=== PATIENT | female | born 1945 | race Caucasian/White ===

== ENCOUNTER 2019-02-04 04:00 | Inpatient (IN) | payer MEDICARE ==
[~2019-02-04] VITALS: Ht 170.2 cm; Wt 108.8 kg
[2019-02-04] MEDS ORDERED: ONDANSETRON 2MG/ML, 2ML ONE (04:15)
--- NOTE | 2019-02-04 04:25 | NUR ---
PT FOUND WITH SOB, N/V. PT FROM [place], PAIN AND SWELLING IN LEFT LOWER EXTREMITY. EMS FOUND HYPOXIC WITH O2 SATS IN 70S ON ROOM AIR
--- NOTE | 2019-02-04 04:29 | NUR ---
LAB AT BEDSIDE TO TAKE FIRST SET OF BLOOD CULTURES
[2019-02-04] MEDS ORDERED: VANCOMYCIN PER PHARMACY IV ONE (04:30)
[2019-02-04] MEDS ORDERED: SODIUM CHLORIDE 0.9% 1,000ML IVBOLUS ONE ×3 (04:30→07:00)
[2019-02-04] MEDS ORDERED: PIPERACILLIN/TAZO/PMX 3.375GM 50 ML IVPB ONE (04:30)
[2019-02-04] MEDS ORDERED: ONDANSETRON 2MG/ML, 2ML IVPush ONE (04:30)
--- NOTE | 2019-02-04 04:30 | NUR ---
ATTEMPTING TO GET SECOND IV WITH ULTRASOUND, WITH DIFFICULTY
[2019-02-04] MEDS: PLEASE ENTER ALLERGIES MC SCH ×3 (04:36→06:35)
[2019-02-04] MEDS ORDERED: ACETAMINOPHEN 650 MG SUPP PR ONE (04:40)
[2019-02-04] MEDS ORDERED: ACETAMINOPHEN 650 MG SUPP ONE (04:41)
[2019-02-04] MEDS ORDERED: ACETAMINOPHEN 325 MG SUPP ONE (04:41)
[2019-02-04] MEDS ORDERED: METF10007 PO (04:59)
[2019-02-04] MEDS ORDERED: HYDR-3342 PO (04:59)
[2019-02-04] MEDS ORDERED: LEVO25TA4 PO (04:59)
[2019-02-04] MEDS ORDERED: TIZA4CAP PO (04:59)
[2019-02-04] MEDS ORDERED: OLME20TA17 PO (04:59)
[2019-02-04] MEDS ORDERED: TRIM100T PO (04:59)
[2019-02-04] MEDS ORDERED: CARV12.52 PO (04:59)
[2019-02-04] MEDS ORDERED: CLON0.2T PO (04:59)
[2019-02-04] MEDS ORDERED: ROSU5TAB PO (04:59)
[2019-02-04] MEDS ORDERED: PREG100C PO (04:59)
[2019-02-04] MEDS ORDERED: INSU100V8 SQ (04:59)
[2019-02-04] MEDS ORDERED: IRON15TA3 PO (04:59)
[2019-02-04] MEDS ORDERED: ACETAMINOPHEN 500 MG TABLET PO ONE (05:00)
[2019-02-04] MEDS ORDERED: VANCOMYCIN 2,000 MG in SODIUM CHLORIDE 0.9% 500 ML IV ONE (05:00)
[2019-02-04 05:07] LABS: BASOPHILS # (AUTO) 0.02 x10^3/uL (0-0.1); BASOPHILS % (AUTO) 0 % (0-1); EOSINOPHILS # (AUTO) 0.15 x10^3/uL (0-0.4); EOSINOPHILS % (AUTO) 3 % (1-7); LYMPHOCYTES # (AUTO) 1.12 x10^3/uL (1-3.4); LYMPHOCYTES % (AUTO) 23 % (22-44); MD NO; MEAN CORPUSCULAR HEMOGLOBIN 25.6 pg (27.0-34.8); MEAN CORPUSCULAR HGB CONC 31.4 g/dL (32.4-35.8); MEAN CORPUSCULAR VOLUME 81.4 fL (80-100); MEAN PLATELET VOLUME 7.8 fL (7.4-10.4); MONOCYTES # (AUTO) 0.17 x10^3/uL (0.2-0.8); MONOCYTES % (AUTO) 3 % (2-9); NEUTROPHILS # (AUTO) 3.44 x10^3/uL (1.8-6.8); NEUTROPHILS % (AUTO) 70 % (42-75); PLATELET COUNT 322 x10^3/uL (130-400); RED BLOOD COUNT 5.04 x10^6/uL (3.82-5.3); RED CELL DISTRIBUTION WIDTH 21.5 % (9.6-15.2)
[2019-02-04] MEDS ORDERED: PIPERACILLIN/TAZO/PMX 3.375GM 50 ML ONE (05:13)
[2019-02-04 05:20] LABS: ALBUMIN 3.7 g/dL (3.4-5.0); ANION GAP 9 mmol/L (5-15); CALCIUM 9.1 mg/dL (8.5-10.1); CHLORIDE 104 mmol/L (98-107)
--- NOTE | 2019-02-04 05:24 | NUR ---
care transfered to angel luis vasques Addendum: 02/04/19 at 0535 by SAV NOA
[2019-02-04 05:25] LABS: ALANINE AMINOTRANSFERASE 21 U/L (12-78); ALKALINE PHOSPHATASE 104 U/L (45-117); BILIRUBIN,TOTAL 1.1 mg/dL (0.2-1.0); CREATININE 1.59 mg/dL (0.55-1.02); TOTAL PROTEIN 7.2 g/dL (6.4-8.2); TROPONIN I 0.114 ng/mL (0.000-0.045)
[2019-02-04 06:15] LABS: MICROSCOPIC INDICATED
[2019-02-04 06:22] LABS: CULTURE INDICATED? YES
--- NOTE | 2019-02-04 06:54 | NUR ---
[id number] sullivan given 3 liters of NS was infused per sepsis protocols vss family at bed side given report to devan hein
[2019-02-04] MEDS ORDERED: NOREPINEPHRINE 4 MG in SODIUM CHLORIDE 0.9% 246 ML IV PRN ×2 (07:00→09:00)
[2019-02-04] MEDS ORDERED: SODIUM CHLORIDE 0.9% 1,000 ML IV SCH (07:02)
[2019-02-04] MEDS ORDERED: PROPOFOL 100 ML IV PRN (07:25)
[2019-02-04] MEDS ORDERED: FUROSEMIDE 20 MG/2 ML ONE (07:28)
[2019-02-04] MEDS ORDERED: VANCOMYCIN PER PHARMACY MC PRN (07:30)
[2019-02-04] MEDS ORDERED: LABETALOL 5MG/ML, 20ML IVPush PRN (07:30)
[2019-02-04] MEDS ORDERED: POLYETHYLENE GLYCOL 17 GM PACKET PO PRN (07:30)
[2019-02-04] MEDS ORDERED: SUCCINYLCHOLINE 20 MG/ML, 10ML IVPush ONE (07:30)
[2019-02-04] MEDS ORDERED: OXYcodone IR 5MG TABLET PO PRN (07:30)
[2019-02-04] MEDS ORDERED: ETOMIDATE 20 MG/10 ML IV ONE (07:30)
[2019-02-04] MEDS ORDERED: VECURONIUM 50 MG in SODIUM CHLORIDE 0.9% 250 ML IV PRN (07:30)
[2019-02-04] MEDS ORDERED: HEPARIN 5,000 UNITS/ML, 1ML SQ SCH ×2 (07:30→10:00)
[2019-02-04] MEDS ORDERED: FUROSEMIDE 40 MG/4 ML IV ONE (07:30)
[2019-02-04] MEDS ORDERED: ONDANSETRON 2MG/ML, 2ML IVPush PRN (07:30)
[2019-02-04] MEDS ORDERED: ACETAMINOPHEN 325 MG TABLET PO PRN ×2 (07:30→21:00)
[2019-02-04] MEDS ORDERED: BISACODYL 10 MG SUPP PR PRN ×2 (07:30→10:00)
[2019-02-04 08:06] LABS: INTERNATIONAL NORMALIZED RATIO 0.98 (0.93-1.1); PROTHROMBIN TIME 10.3 Seconds (9.6-11.5)
[2019-02-04] MEDS: PIPERACILLIN/TAZO/PMX 3.375GM 50 ML IV SCH ×3 (08:30→20:59)
--- NOTE | 2019-02-04 08:39 | NUR ---
sbar to fanny hein [id number]
--- NOTE | 2019-02-04 08:40 | NUR ---
LATE ENTRY PT DEMONSTRATED INCREASED WOB, COARSE WET LUNG AUSCULTATION, ELEVATED HR AT APPROX 0705. DR KAREN ESQUIVEL. PT INTUBATED AT APPROX 0720. PT [id number]&OX4 PRIOR TO INTUBATION.
[2019-02-04] MEDS ORDERED: SENNA/DOCUSATE TABLET PO SCH (09:00)
[2019-02-04] MEDS ORDERED: FAMOTIDINE 20 MG TABLET PO SCH (09:00)
[2019-02-04] MEDS ORDERED: PHARMACOKINETIC MONITORING MC PRN (09:00)
[2019-02-04] MEDS ORDERED: PHARMACOKINETIC CONSULTATION MC ONE (09:00)
[2019-02-04] MEDS ORDERED: MAGNESIUM SULFATE PMX 2GM/50ML 50 ML IV ONE (09:00)
--- NOTE | 2019-02-04 09:31 | NUR ---
JOE BARRIGA (SISTER) [phone]
[2019-02-04 09:41] LABS: FIO2 100 %
[2019-02-04] MEDS ORDERED: SODIUM BICARB 8.4%, 50ML SYRINGE IVPush STA ×2 (09:58→14:05)
[2019-02-04] MEDS ORDERED: PHARMACY MAY ADJ FOR RENAL FX MC SCH (10:00)
[2019-02-04] MEDS ORDERED: LIDOCAINE-MPF 1%, 2ML ENDO PRN (10:00)
[2019-02-04] MEDS ORDERED: SENNA/DOCUSATE TABLET NG PRN (10:00)
[2019-02-04] MEDS ORDERED: GLUCAGON 1 MG IM PRN (10:00)
[2019-02-04] MEDS ORDERED: FENTANYL PF 100 MCG/2ML IVPush PRN (10:00)
[2019-02-04] MEDS ORDERED: DEXTROSE 50%, 50ML SYRINGE IVPush PRN (10:00)
[2019-02-04] MEDS ORDERED: DEXTROSE 4 GM TAB.CHEW PO PRN (10:00)
[2019-02-04] MEDS ORDERED: VASOPRESSIN 100 UNIT in SODIUM CHLORIDE 0.9% 495 ML IV PRN (10:00)
[2019-02-04] MEDS ORDERED: LACTULOSE 20 GM/30 ML UDC NG PRN (10:00)
[2019-02-04] MEDS ORDERED: SENNA 176 MG/5 ML ORAL SOL NG PRN (10:00)
[2019-02-04] MEDS ORDERED: SODIUM BICARBONATE 1 MEQ/ML, 50ML VIAL ONE ×2 (10:04→14:10)
[2019-02-04] MEDS: NOREPINEPHRINE 4 MG in SODIUM CHLORIDE 0.9% 246 ML IV PRN ×2 (10:44→14:00)
[2019-02-04] MEDS: ALBUTEROL/IPRATROPIUM 2.5MG/0.5MG, 3 ML INLINE SCH ×4 (11:20→22:16)
[2019-02-04] MEDS: PREGABALIN 100 MG CAPSULE PO SCH (12:00)
[2019-02-04] MEDS: methylPREDNISolone SOD SUCC 40 MG/ML IV SCH ×2 (12:04→17:54)
[2019-02-04] MEDS: INSULIN LISPRO 100 UNITS/ML, PEN SQ-INSULIN SCH ×3 (12:04→21:10)
[2019-02-04] MEDS: PROPOFOL 100 ML IV PRN ×2 (12:56→20:26)
[2019-02-04] MEDS ORDERED: HEPARIN 5,000 UNITS/ML, 1ML IV PRN (13:30)
[2019-02-04] MEDS ORDERED: HEPARIN 25,000 UNITS/500ML PMX 500 ML IV PRN (13:30)
[2019-02-04] MEDS ORDERED: HEPARIN 5,000 UNITS/ML, 1ML IV ONE (13:30)
[2019-02-04 13:36] LABS: FIO2 100 %
[2019-02-04] MEDS ORDERED: PHENYLEPHRINE 10 MG in SODIUM CHLORIDE 0.9% 249 ML IV PRN (14:00)
[2019-02-04] MEDS ORDERED: SODIUM BICARBONATE 1 MEQ/ML, 50ML VIAL IVPush ONE (14:30)
[2019-02-04] MEDS ORDERED: PROPOFOL 10 MG/ML, 100ML IV ONE (15:22)
[2019-02-04] MEDS ORDERED: ETOMIDATE 40 MG/20 ML ONE (15:22)
[2019-02-04] MEDS ORDERED: VECURONIUM 20 MG VIAL ONE (15:22)
[2019-02-04] MEDS ORDERED: SUCCINYLCHOLINE 20 MG/ML, 10ML ONE (15:22)
[2019-02-04] MEDS ORDERED: NOREPINEPHRINE 8 MG in SODIUM CHLORIDE 0.9% 242 ML IV PRN (16:00)
[2019-02-04] MEDS: BUDESONIDE 0.5 MG/2 ML INHA INH SCH (19:22)
[2019-02-04] MEDS ORDERED: TEMPLATE NON-FORMULARY MED. (Rosuvastatin Calcium** (Crestor**) 5 MG) PO SCH (21:00)
[2019-02-04] MEDS: SODIUM CHLORIDE FLUSH 10ML SYR IVF SCH (21:13)
[2019-02-05] MEDS: methylPREDNISolone SOD SUCC 40 MG/ML IV SCH ×2 (00:18→05:42)
[2019-02-05] MEDS: ALBUTEROL/IPRATROPIUM 2.5MG/0.5MG, 3 ML INLINE SCH ×3 (02:14→09:50)
[2019-02-05] MEDS: PIPERACILLIN/TAZO/PMX 3.375GM 50 ML IV SCH ×2 (02:29→08:51)
[2019-02-05 03:17] LABS: CULTURE INDICATED? YES; MICROSCOPIC INDICATED
[2019-02-05 04:51] VITALS: BP 115/47
[2019-02-05 05:41] LABS: CHLORIDE 105 mmol/L (98-107)
[2019-02-05 05:50] LABS: ALANINE AMINOTRANSFERASE 72 U/L (12-78); ALBUMIN 2.5 g/dL (3.4-5.0); ALKALINE PHOSPHATASE 63 U/L (45-117); ANION GAP 10 mmol/L (5-15); BILIRUBIN,TOTAL 1.3 mg/dL (0.2-1.0); CALCIUM 7.9 mg/dL (8.5-10.1); CREATININE 1.65 mg/dL (0.55-1.02)
[2019-02-05 05:53] LABS: MEAN CORPUSCULAR HEMOGLOBIN 25.4 pg (27.0-34.8); MEAN CORPUSCULAR HGB CONC 31.9 g/dL (32.4-35.8); MEAN CORPUSCULAR VOLUME 79.9 fL (80-100); MEAN PLATELET VOLUME 8.1 fL (7.4-10.4); PLATELET COUNT 243 x10^3/uL (130-400); RED BLOOD COUNT 4.51 x10^6/uL (3.82-5.3); RED CELL DISTRIBUTION WIDTH 22.2 % (9.6-15.2)
[2019-02-05] MEDS ORDERED: LEVOTHYROXINE 25 MCG TABLET PO SCH (06:00)
[2019-02-05 06:18] LABS: MD YES
[2019-02-05 06:21] LABS: BAND#(MANUAL) 2.02 x10^3/uL; BANDS%(MANUAL) 17 % (0-7); LYMPH#(MANUAL) 0.83 x10^3/uL (1-3.4); LYMPHS% (MANUAL) 7 % (22-44); MONOS#(MANUAL) 0.12 x10^3/uL (0.3-2.7); MONOS% (MANUAL) 1 % (2-9); SEG#(MANUAL) 8.93 x10^3/uL (1.8-6.8); SEGS% (MANUAL) 75 % (42-75)
[2019-02-05 06:24] LABS: ANISOCYTOSIS 1+
[2019-02-05 06:27] LABS: HYPOCHROMIA 1+
[2019-02-05 06:28] LABS: <PLATELET ESTIMATE> ADEQUATE; <PLT MORPHOLOGY> NORMAL PLT MORPH; OVALOCYTES 1+
[2019-02-05] MEDS ORDERED: VANCOMYCIN 2,000 MG in SODIUM CHLORIDE 0.9% 500 ML IV SCH ×2 (06:30→18:00)
[2019-02-05] MEDS: BUDESONIDE 0.5 MG/2 ML INHA INH SCH (06:32)
[2019-02-05] MEDS: INSULIN LISPRO 100 UNITS/ML, PEN SQ-INSULIN SCH ×2 (06:45→10:50)
[2019-02-05] MEDS: PREGABALIN 100 MG CAPSULE PO SCH (08:52)
[2019-02-05] MEDS: SODIUM CHLORIDE FLUSH 10ML SYR IVF SCH (08:53)
[2019-02-05] MEDS ORDERED: INSULIN GLARGINE 100 UNITS/ML, PEN SQ-INSULIN SCH (09:00)
--- NOTE | 2019-02-05 10:29 | NUR ---
TF GOAL: w/ propofol: VITAL HIGH PROTEIN @ 55ml/hr off propofol: VITAL HIGH PROTEIN @ 65ml/hr
[2019-02-05] MEDS: PROPOFOL 100 ML IV PRN (10:49)
[2019-02-05] MEDS ORDERED: morphine SULFATE ORAL.CONC 20 MG/ML BC PRN (12:00)
[2019-02-05] MEDS ORDERED: ATROPINE OPHTH SOLN 1%, 5ML BC PRN (12:00)
[2019-02-05] MEDS ORDERED: LORazepam INTENSOL 2 MG/ML SL PRN (12:00)
[2019-02-05] MEDS ORDERED: MORPHINE SULFATE 4 MG/ML, 1ML IVPush PRN ×2 (12:00)
[2019-02-05] MEDS ORDERED: SCOPOLAMINE PATCH, 1.5MG PATCH.TD72 TD SCH (12:00)
[2019-02-05] MEDS ORDERED: morphine SULFATE 125 MG in SODIUM CHLORIDE 0.9% 237.5 ML IV PRN (12:30)
[2019-02-05] MEDS: MORPHINE 30MG/30ML PCA.SYR IV PRN ×3 (13:12→21:02)
[2019-02-05] MEDS ORDERED: LORazepam 2 MG/ML, 1ML ONE (13:32)
[2019-02-05] MEDS: LORazepam 2 MG/ML, 1ML IVPush PRN ×2 (13:35→15:18)
== END 2019-02-06 05:29 | disposition expired | DRG 871 ==
LOC: ED 07:01 → EDIP 07:02 → ICU 08:17 → 3NW 02-05 16:11
PROVIDERS: ADMIT Internal Medicine; ATTEND Internal Medicine
PROC: 5A1945Z Respiratory Ventilation, 24-96 Consecutive Hours (ICD-10-PCS; 2019-02-04)
PROC: 0BH17EZ Insertion of Endotracheal Airway into Trachea, Via Natural or Artificial Opening (ICD-10-PCS; 2019-02-04)
PROC: 02HV33Z Insertion of Infusion Device into Superior Vena Cava, Percutaneous Approach (ICD-10-PCS; 2019-02-04)
PROC: B548ZZA Ultrasonography of Superior Vena Cava, Guidance (ICD-10-PCS; 2019-02-04)
PROC: 0T9B70Z Drainage of Bladder with Drainage Device, Via Natural or Artificial Opening (ICD-10-PCS; principal; 2019-02-05)
DX: A41.9 Sepsis, unspecified organism (principal); I21.4 Non-ST elevation (NSTEMI) myocardial infarction; J96.01 Acute respiratory failure with hypoxia; N17.0 Acute kidney failure with tubular necrosis; I63.9 Cerebral infarction, unspecified; J15.9 Unspecified bacterial pneumonia; R65.21 Severe sepsis with septic shock; G81.94 Hemiplegia, unspecified affecting left nondominant side; Z99.11 Dependence on respirator [ventilator] status; E03.9 Hypothyroidism, unspecified; E11.42 Type 2 diabetes mellitus with diabetic polyneuropathy; E66.9 Obesity, unspecified; Z68.37 Body mass index [BMI] 37.0-37.9, adult; Z88.6 Allergy status to analgesic agent; Z88.3 Allergy status to other anti-infective agents; Z88.5 Allergy status to narcotic agent; Z88.2 Allergy status to sulfonamides; Z88.8 Allergy status to other drugs, medicaments and biological substances; E78.5 Hyperlipidemia, unspecified; I10 Essential (primary) hypertension; J45.909 Unspecified asthma, uncomplicated; N30.91 Cystitis, unspecified with hematuria; Z51.5 Encounter for palliative care; Z83.3 Family history of diabetes mellitus
CPT/HCPCS: 36415; 36556; 36600; 70450; 71045; 80053; 81001; 82803; 82962; 83605; 83690; 83735; 83880; 84100; 84145; 84478; 84484; 85025; 85520; 85610; 87040; 87070; 87077; 87081; 87086; 87186; 87205; 93005; 93306; 93970; 94002; 94003; 94640; 96361; 96365; 96375; 99292; G0378; J1644; J1940; J2270; J2405; J2543; J2704; J3370; J7620; J7626; J0330; J1815; J2060; J2920; J3475; J7030; J7040; J7050